=== PATIENT | male | born 1945 | race Caucasian/White ===

== ENCOUNTER → 2021-11-01 07:38 | Outpatient (CLI) | payer OTHER, SELFPAY ==
--- NOTE | 2021-11-01 | DI.ECHO.S_ITS ---
[facility]---------+ [facility] +---------+ : : [address] : [address] : : : : [id number] : : : : Phone: [phone]---------+ Echocardiogram Report + + :Name: PAOLA FLETCHER Study Date: 11/01/2021 Height: 74 in : :[facility] ReadingLocation: Weight: 205 lb : : Gender: Male BSA: 2.2 m2 : :: 1945 Age: 75 yrs BP: 148/69 mmHg: :Reason For Study: Murmur : :Ordering Physician: MONY, : :SIS Ingram Performed By: Manuelito Grider : :Referring: SIS SYKES : + + Interpretation Summary The ejection fraction is estimated to be 60-65%. Grade II diastolic dysfunction. The right ventricle is mildly dilated. The right ventricular systolic function is normal. Both atria are mildly dilated. There is mild tricuspid regurgitation. PASP is approximately 40 mmHg. Procedure: A two-dimensional transthoracic echocardiogram with color flow and Doppler was performed. The study quality was technically adequate. There is no prior echocardiogram noted for this patient. Left Ventricle: The left ventricle is normal in size and wall thickness. Left ventricular systolic function is normal. The ejection fraction is estimated to be 60-65%. There are no focal wall motion abnormalities. Grade II diastolic dysfunction. Right Ventricle: The right ventricle is mildly dilated. The right ventricular systolic function is normal. Atria: Both atria are mildly dilated. The interatrial septum grossly appears intact with no obvious evidence for an atrial septal defect. Mitral Valve: The mitral valve is normal in structure and function. There is trace mitral regurgitation. Aortic Valve: There is mild aortic valve sclerosis. The aortic valve is trileaflet. There is no aortic valve stenosis. No aortic regurgitation is present. Tricuspid Valve: The tricuspid valve is normal in structure and function. There is mild tricuspid regurgitation. PASP is approximately 40 mmHg. Pulmonic Valve: The pulmonic valve is normal in structure and function. There is mild pulmonic regurgitation. Great Vessels: The aortic root is normal size. The dimensions of the ascending aorta are normal. The IVC is of normal diameter and collapses greater than 50% with a sniff. This suggests a low right atrial pressure of 3 mm Hg. Pericardium/ Pleura There is no pericardial effusion. There is no pleural effusion. MMode/2D Measurements & Calculations LVIDd: 5.5 cm LVOT diam: 2.5 cm LVIDs: 3.9 cm Ao root diam: 3.2 cm FS: 29.1 % asc Aorta Diam: 3.3 cm IVSd: 1.1 cm LVPWd: 0.90 cm LV orme. diameter/BSA (cm/m^2): 2.5 LV sys. diameter/BSA (cm/m^2): 1.8 LA dimension: 4.1 cm RA long axis: 5.9 cm LA A2 area: 22.7 cm2 LA A4 area: 25.7 cm2 LA length (vol): 6.0 cm LA vol: 83.2 ml LA vol index: 37.9 ml/m2 RVD1 (basal): 4.3 cm TAPSE_phl: 3.1 cm Doppler Measurements & Calculations Ao V2 max: 202.0 cm/sec LVOT Max Paul: 108.0 cm/sec Ao V2 mean: 135.0 cm/sec LV V1 max P.7 mmHg Ao max P.0 mmHg LV V1 VTI: 22.6 cm Ao mean P.0 mmHg PARKER(I,D): 2.7 cm2 Ao V2 VTI: 41.4 cm PARKER(V,D): 2.6 cm2 sev ratio: 0.55 PARKER indexed to BSA (cm^2/m^2): 1.2 MV E max paul: 87.0 cm/sec TR max paul: 297.0 cm/sec MV A max paul: 89.1 cm/sec TR max P.3 mmHg MV E/A: 0.98 Med Peak E' Paul: 5.8 cm/sec E/E' med: 15.0 Lat Peak E' Paul: 9.2 cm/sec E/E' lat: 9.5 E/e' average: 12.2 MV dec time: 0.29 sec SV(LVOT): 110.9 ml AV VR_phl: 0.53 PARKER(VTI)/BSA_phl: 1.2 MV P1/2t-pr_phl: 84.0 msec Reading Physician:01:38 PM
== END ==
PROVIDERS: PCP Internal Medicine; Referring Provider Internal Medicine; Visit Provider Internal Medicine
DX: I08.2 Rheumatic disorders of both aortic and tricuspid valves (principal); R01.1 Cardiac murmur, unspecified
CPT/HCPCS: 93306